=== PATIENT | female | born 1995 | race Asian ===

== ENCOUNTER → 2019-12-09 11:43 | Outpatient (BNVA) | payer OTHER, SELFPAY | PROVIDERS: Visit Provider Advanced Practice Midwife | DX: Z76.89 Persons encountering health services in other specified circumstances (principal) ==

== ENCOUNTER 2020-01-03 13:42 | Outpatient (REF) | payer OTHER, SELFPAY ==
[2020-01-03 15:26] LABS: Hematocrit 34.6 % (37-47); Hemoglobin 11.2 g/dl (12.0-16.0); Mean Corpuscular HGB Conc 32.4 g/dl (31.0-35.0); Mean Corpuscular Hemoglobin 31.6 pg (27.0-33.0); Mean Corpuscular Volume 97.7 fL (80-98); Platelet Count 271 X10*3/uL (160-400); Red Blood Count 3.54 X10*6/uL (4.20-5.50); Red Cell Distribution Width 13.3 % (11.0-16.0)
[2020-01-03 15:49] LABS: Glucose 1 Hour PP 50gm Dose 111 mg/dL (60-140)
[2020-01-04 08:23] LABS: Syphilis Screen Nonreactive (Nonreactive)
[2020-01-05 08:47] LABS: HIV AB/AG Nonreactive (Nonreactive); HIV Num 1 0.13 S/CO (0.00-0.99)
== END 2020-01-03 13:43 | disposition home or self-care (01) ==
LOC: HO.LAB 13:42
PROVIDERS: Visit Provider Advanced Practice Midwife
DX: Z34.80 Encounter for supervision of other normal pregnancy, unspecified trimester (principal)
CPT/HCPCS: 36415; 85027; 86780; 87389

== ENCOUNTER 2020-01-13 12:55 | Outpatient (REF) | payer OTHER, SELFPAY ==
--- NOTE | 2020-01-13 13:05 | US_ITS ---
EXAMINATION: OBSTETRICAL ULTRASOUND, Follow up HISTORY: 24-year-old at 29.2 weeks of gestation Size date discrepancy COMPARISON: 10/28/2019 TECHNIQUE: Real time transabdominal imaging with color and M-mode Doppler. PRESENTATION: Vertex PLACENTA LOCATION: Anterior without previa AMNIOTIC FLUID: RANJIT: 16.7 cm MEASUREMENTS: 1. Biparietal Diameter: 7.8 cm; 31.3 wks 2. Head Circumference: 28.4 cm; 31.2 wks 3. Abdominal Circumference: 26.1 cm; 30.2 wks 4. Femur Length: 5.84 cm; 30.4 wks 5. Heart Rate: 135 beats per minute WEIGHT: EFW: 1602 grams (3 lbs 9 oz) -- 83 %. BIOPHYSICAL PROFILE: Motion: 2 Tone: 2 Breathin Amniotic Fluid: 2 Total score: 8/8 Normal views of the posterior fossa, lateral ventricles, four-chamber view, stomach, bladder and kidneys. GESTATIONAL AGE: 1. Established GA: 29.2 wks 2. GA from [facility]: 31.0 wks ESTIMATED DATE OF DELIVERY: 1. Established CLEMENTE: 03/28/2020 2. CLEMENTE from [facility]: 03/16/2020 US/US OB follow up IMPRESSION: 1. A single active fetus is in vertex presentation 2. Size equals dates 3. Reassuring biophysical profile Thank you very much for this referral.
== END 2020-01-13 12:56 | disposition home or self-care (01) ==
LOC: HO.US 12:55
PROVIDERS: Visit Provider Advanced Practice Midwife
DX: O36.60X0 Maternal care for excessive fetal growth, unspecified trimester, not applicable or unspecified (principal)
CPT/HCPCS: 76816

== ENCOUNTER → 2020-01-23 13:44 | Outpatient (BNVA) | payer OTHER, SELFPAY | PROVIDERS: Visit Provider Advanced Practice Midwife | DX: Z76.89 Persons encountering health services in other specified circumstances (principal) ==

== ENCOUNTER → 2020-02-06 13:04 | Outpatient (BNVA) | payer OTHER, SELFPAY | PROVIDERS: Visit Provider Advanced Practice Midwife | DX: Z34.80 Encounter for supervision of other normal pregnancy, unspecified trimester (principal) | CPT/HCPCS: 81003 ==

== ENCOUNTER → 2020-02-20 12:49 | Outpatient (BNVA) | payer OTHER, SELFPAY | PROVIDERS: Visit Provider Advanced Practice Midwife | DX: Z34.80 Encounter for supervision of other normal pregnancy, unspecified trimester (principal) | CPT/HCPCS: 99212 ==

== ENCOUNTER → 2020-03-05 10:02 | Outpatient (BNVA) | payer OTHER, SELFPAY | PROVIDERS: Visit Provider Advanced Practice Midwife | DX: Z34.80 Encounter for supervision of other normal pregnancy, unspecified trimester (principal) | CPT/HCPCS: 36415; 99212 ==

== ENCOUNTER 2020-03-05 13:18 | Outpatient (REF) | payer OTHER, SELFPAY | END 2020-03-07 13:19 | disposition home or self-care (01) | LOC: HO.LNP 13:18 | PROVIDERS: Visit Provider Advanced Practice Midwife | DX: Z13.89 Encounter for screening for other disorder (principal) ==

== ENCOUNTER 2020-03-05 15:26 | Outpatient (REF) | payer OTHER, SELFPAY ==
[2020-03-07 18:57] LABS: C. trachomatis RNA TMA NOT DETECTED (NOT DETECTED); N. gonorrhoeae RNA TMA NOT DETECTED (NOT DETECTED)
== END 2020-03-05 15:27 | disposition home or self-care (01) ==
LOC: HO.LNP 15:26
PROVIDERS: Visit Provider Advanced Practice Midwife
DX: Z34.80 Encounter for supervision of other normal pregnancy, unspecified trimester (principal)
CPT/HCPCS: 36415; 87081; 87491; 87591

== ENCOUNTER 2020-03-12 11:01 | Outpatient (REF) | payer OTHER, SELFPAY ==
[2020-03-12 12:54] LABS: Hematocrit 37.1 % (37-47); Hemoglobin 12.1 g/dl (12.0-16.0); Mean Corpuscular HGB Conc 32.6 g/dl (31.0-35.0); Mean Corpuscular Hemoglobin 30.9 pg (27.0-33.0); Mean Corpuscular Volume 94.9 fL (80-98); Mean Platelet Volume 10.9 fL (9.4-12.3); Platelet Count 226 X10*3/uL (160-400); Red Blood Count 3.91 X10*6/uL (4.20-5.50); Red Cell Distribution Width 13.6 % (11.0-16.0); White Blood Count 10.4 X10*3/uL (4.8-10.8)
[2020-03-12 13:14] LABS: Alanine Aminotransferase 12 U/L (0-31); Aspartate Amino Transferase 15 U/L (5-31); Blood Urea Nitrogen 8 mg/dL (9-16); Uric Acid 6.2 mg/dL (2.4-5.7)
[2020-03-12 14:14] LABS: Creatinine Urine 102.87 mg/dL; Protein/Creatinine Ratio, Ur 0.23 (<0.2); Total Protein Urine Random 24 mg/dL (<12)
== END 2020-03-12 11:02 | disposition home or self-care (01) ==
LOC: HO.LAB 11:01
PROVIDERS: Visit Provider Advanced Practice Midwife
DX: Z34.83 Encounter for supervision of other normal pregnancy, third trimester (principal)
CPT/HCPCS: 36415; 81003; 84156; 84450; 84460; 84520; 84550; 85027; 99212

== ENCOUNTER → 2020-03-14 13:54 | Outpatient (BNVA) | payer OTHER, SELFPAY | PROVIDERS: Visit Provider Advanced Practice Midwife | DX: O36.8190 Decreased fetal movements, unspecified trimester, not applicable or unspecified (principal) | CPT/HCPCS: 59025; 99212 ==

== ENCOUNTER → 2020-03-19 10:47 | Outpatient (BNVA) | payer OTHER, SELFPAY | PROVIDERS: PCP Internal Medicine; Visit Provider Advanced Practice Midwife | DX: Z34.90 Encounter for supervision of normal pregnancy, unspecified, unspecified trimester (principal) | CPT/HCPCS: 81003; 99212 ==

== ENCOUNTER → 2020-03-26 11:24 | Outpatient (BNVA) | payer OTHER, SELFPAY | PROVIDERS: PCP Internal Medicine; Visit Provider Advanced Practice Midwife | DX: O36.60X0 Maternal care for excessive fetal growth, unspecified trimester, not applicable or unspecified (principal) | CPT/HCPCS: 81003; 99212 ==

== ENCOUNTER 2020-03-29 14:34 | Outpatient (REF) | payer OTHER, SELFPAY ==
--- NOTE | ~2020-03-29 | US_ITS ---
EXAMINATION: US OBSTETRICAL FOLLOWUP WITH BIOPHYSICAL PROFILE CLINICAL INFORMATION: Small for dates. Post dates. COMPARISON: Ultrasound OB 01/13/2020 TECHNIQUE: Real time transabdominal imaging with color and M-mode Doppler. POSITION: Cephalic. PLACENTA: Anterior grade 3. AMNIOTIC FLUID INDEX: 10.5 cm. MEASUREMENTS: The initial dating ultrasound dated provided an estimated date of delivery of 03/31/2020. This would project today to a of 39 weeks and 5 days. By LMP clinical gestational age is 40 weeks 1 day. biometric measurements are as follows: Biparietal Diameter: 9.44 cm (38 weeks and 4 days) Head Circumference: 34.93 cm (40 weeks and 5 days) Abdominal Circumference: 35.96 cm (40 weeks and 0 days) Femur Length: 7.69 cm (39 weeks and 3 days) The standard deviation for the above measurements is +/- 3 weeks. ESTIMATED WEIGHT: The EFW is 3851 grams / (8 lbs 8 oz. Patient is about 40 weeks hence no percentile is calculated. BIOPHYSICAL PROFILE: Biophysical profile is performed over 30 minutes with assessment of breathing, gross body movement, tone, and qualitative amniotic fluid volume. Each matrix is scored 0 or 2, depending if the metric is present. Maximum total score possible is 8. Motion: 2 Tone: 2 Breathin Amniotic Fluid: 2 Total score: 8 HR: 124 bpm US/US OB follow up IMPRESSION: 1. Single intrauterine gestation in cephalic position with anterior placenta. 2. EFW: 8 pounds and 8 ounces. 3. RANJIT: 10.5 cm. 4. BPP score: 8/8 (scale 0-8).
== END 2020-03-29 14:35 | disposition home or self-care (01) ==
LOC: HO.US 14:34
PROVIDERS: Visit Provider Advanced Practice Midwife
DX: O36.63X0 Maternal care for excessive fetal growth, third trimester, not applicable or unspecified (principal); Z3A.39 39 weeks gestation of pregnancy
CPT/HCPCS: 76816

== ENCOUNTER → 2020-04-02 11:08 | Outpatient (BNVA) | payer OTHER, SELFPAY | PROVIDERS: Visit Provider Advanced Practice Midwife | DX: Z34.90 Encounter for supervision of normal pregnancy, unspecified, unspecified trimester (principal) | CPT/HCPCS: 99212 ==

== ENCOUNTER 2020-04-18 10:26 | Outpatient (REF) | payer OTHER, SELFPAY ==
[2020-04-19 16:12] LABS: C. trachomatis RNA TMA NOT DETECTED (NOT DETECTED); N. gonorrhoeae RNA TMA NOT DETECTED (NOT DETECTED)
== END 2020-04-18 10:27 | disposition home or self-care (01) ==
LOC: HO.LAB 10:26
PROVIDERS: Visit Provider Obstetrics & Gynecology
DX: Z39.2 Encounter for routine postpartum follow-up (principal); B37.3 Candidiasis of vulva and vagina; Z20.2 Contact with and (suspected) exposure to infections with a predominantly sexual mode of transmission; Z30.09 Encounter for other general counseling and advice on contraception; Z79.82 Long term (current) use of aspirin; Z79.899 Other long term (current) drug therapy
CPT/HCPCS: 36415; 87491; 87591; 99212

== ENCOUNTER 2020-05-14 13:08 | Outpatient (REF) | payer OTHER, SELFPAY ==
[2020-05-14 14:06] LABS: Hematocrit 38.1 % (37-47); Hemoglobin 12.5 g/dl (12.0-16.0); Mean Corpuscular HGB Conc 32.8 g/dl (31.0-35.0); Mean Corpuscular Volume 94.5 fL (80-98); Platelet Count 336 X10*3/uL (160-400); Red Blood Count 4.03 X10*6/uL (4.20-5.50); Red Cell Distribution Width 13.6 % (11.0-16.0)
== END 2020-05-14 13:09 | disposition home or self-care (01) ==
LOC: HO.LAB 13:08
PROVIDERS: Visit Provider Obstetrics & Gynecology
DX: Z98.890 Other specified postprocedural states (principal)
CPT/HCPCS: 36415; 85027

== ENCOUNTER → 2020-05-16 10:36 | Outpatient (BNVA) | payer OTHER, SELFPAY | PROVIDERS: Visit Provider Obstetrics & Gynecology | DX: Z39.2 Encounter for routine postpartum follow-up (principal) | CPT/HCPCS: 99212 ==

== ENCOUNTER 2020-06-18 13:15 | Outpatient (REF) | payer OTHER, SELFPAY ==
[2020-06-19 01:23] LABS: CT PCR NOT DETECTED (Not Detect.); NG PCR NOT DETECTED (Not Detect.)
== END 2020-06-18 13:16 | disposition home or self-care (01) ==
LOC: HO.LAB 13:15
PROVIDERS: Visit Provider Advanced Practice Midwife
DX: Z39.1 Encounter for care and examination of lactating mother (principal); Z20.2 Contact with and (suspected) exposure to infections with a predominantly sexual mode of transmission
CPT/HCPCS: 87491; 87591

== ENCOUNTER 2020-09-24 13:05 | Outpatient (REF) | payer OTHER, SELFPAY ==
[2020-09-25 00:51] LABS: CT PCR NOT DETECTED (Not Detect.); NG PCR NOT DETECTED (Not Detect.)
== END 2020-09-24 13:06 | disposition home or self-care (01) ==
LOC: HO.LAB 13:05
PROVIDERS: Visit Provider Advanced Practice Midwife
DX: Z30.430 Encounter for insertion of intrauterine contraceptive device (principal); Z20.2 Contact with and (suspected) exposure to infections with a predominantly sexual mode of transmission
CPT/HCPCS: 58300; 81025; 87491; 87591

== ENCOUNTER → 2021-01-09 10:16 | Outpatient (BNVA) | payer OTHER, SELFPAY | PROVIDERS: Visit Provider Advanced Practice Midwife | DX: Z30.431 Encounter for routine checking of intrauterine contraceptive device (principal) | CPT/HCPCS: 99212 ==

== ENCOUNTER 2021-06-20 13:36 | Outpatient (REF) | payer OTHER, SELFPAY ==
[2021-06-21 13:09] LABS: BV Int Neg Control Negative (Negative); BV Int Pos Control Positive (Positive)
[2021-06-21 13:51] LABS: CT PCR NOT DETECTED (Not Detect.); NG PCR NOT DETECTED (Not Detect.)
== END 2021-06-20 13:37 | disposition home or self-care (01) ==
LOC: HO.LAB 13:36
PROVIDERS: Visit Provider Advanced Practice Midwife
DX: Z01.411 Encounter for gynecological examination (general) (routine) with abnormal findings (principal); Z20.2 Contact with and (suspected) exposure to infections with a predominantly sexual mode of transmission; N89.8 Other specified noninflammatory disorders of vagina; L70.9 Acne, unspecified
CPT/HCPCS: 87480; 87491; 87510; 87591; 87660

== ENCOUNTER 2022-10-08 14:12 | Outpatient (REF) | payer SELFPAY ==
[2022-10-09 09:13] LABS: CT PCR NOT DETECTED (Not Detect.); NG PCR NOT DETECTED (Not Detect.)
[2022-10-09 10:43] LABS: BV Int Neg Control Negative (Negative); BV Int Pos Control Positive (Positive)
== END 2022-10-08 14:13 | disposition home or self-care (01) ==
LOC: HO.LAB 14:12
PROVIDERS: Visit Provider Advanced Practice Midwife
DX: N89.8 Other specified noninflammatory disorders of vagina (principal); Z20.2 Contact with and (suspected) exposure to infections with a predominantly sexual mode of transmission
CPT/HCPCS: 0353U; 87480; 87510; 87660

== ENCOUNTER 2022-10-08 14:12 | Outpatient (AMB) | payer SELFPAY ==
[2022-10-08 14:18] VITALS: BP 124/70; BMI 35.8
--- NOTE | 2022-10-08 14:18 | MHC.OFFVIS ---
Intake Vital Signs 10/08/22 14:18 Height 5 ft 2 in Weight 196 lb BMI 35.8 BP 124/70 Intake Visit Reasons: Annual/keep 30 mins Intake Note: The patient agreed to use of a medical assembly during this encounter. Scribed for ALEJANDRA Saucedo by Juanita Sanchez, medical assembly, on 10/08/2022 at 2:35 pm EST. Oil And Gas Superintendent Required: Yes Oil And Gas Superintendent Language: Kyrgyz Oil And Gas Superintendent Name: Sylvester Gomez Information Interpreted: non-clinical & clinical Housekeeping Room Inspector: Housekeeping Room Inspector Present (Julienne) Allergies No Known Allergies Allergy (Verified 10/08/22 14:20) Is last menstrual period known: Yes Last menstrual period: 09/19/22 HPI HPI Comments History of Present Illness Details She is a premenopausal woman presenting for annual exam. She admits to eating healthy and tries to stay active with exercise. Currently sexually active. Reports pelvic pain partner stated IUD strings were bothersome during intimacy. Uses ParaGard for BC. Menses are normal volume and regular pattern. Denies vaginal itching and irritation. Admits vaginal discharge. STD screening offered; she accepts. Denies family hx of breast, colon and ovarian cancer. Last pap smear 09/15/19. [facility] Medical History (Updated 10/08/22 @ 14:48 by Juanita Sanchez) IUD surveillance Pelvic pain Vaginal Discharge Surgical History History of section Family History Mother HTN (hypertension) Sister HTN (hypertension) Social History (Updated 10/08/22 @ 14:25 by VILMA Peters) Alcohol intake: never Patient Tobacco Use Status: Never used Tobacco Sexual orientation: Straight/Heterosexual Gender identity: Female Female Reproductive History Menstrual Age of Menarche: 8 Date of last menstrual period: 09/19/22 control method: copper IUCD (Paragard 10/13, IUD strings visible 10/08/22) Total pregnancies: 1 Full term: 1 Number of Living Children: 1 Date of last pap smear: 09/15/19 (neg) Physical Exam Vital Signs: Last Vital Signs BP 124/70 08/16/23 14:18 BMI result Body Mass Index 35.8 Const General: cooperative, healthy appearing, no acute distress, well developed and alert Orientation/consciousness: patient oriented x3 HEENT Head: Yes normal to inspection Eyes General: appearance normal, both eyes and all related structures Neck Neck: Yes normal visual inspection Thyroid: Thyroid normal Chest Chest palpation & inspection: normal inspection of the chest Breast/axilla inspection: normal inspection of the breasts (no puckering, dimpling, peau de orange, retraction, discharge, masses) Breast/axilla palpation: normal palpation of the breasts Resp Effort & Inspection: normal respiratory effort GI Inspection: Yes normal to inspection Palpation (GI): Soft to palpation (to palpation) Rectal Exam - Female: deferred General: Yes bladder normal to inspection External Female Exam: normal external appearance and normal appearance of the urethra Speculum Exam - Vagina: normal appearance of the vagina, normal palpation and abnormal vaginal discharge Speculum Exam - Cervix: normal appearance of the cervix, normal palpation and Other cervical findings present (IUD strings visible; bled slightly with pap) Bimanual exam- vagina & uterus: normal palpation and normal palpation Bimanual Exam- Adnexa, other: normal adnexae and no masses Skin General skin exam: no rashes or lesions noted Neuro General: patient oriented x3 Cognition (Neuro): normal cognition Extrem General: Yes normal to inspection Psych Attitude: cooperative Thought process: Normal thought process present Assessment & Plan Assessment & Plan (1) Encounter for well woman exam: Code(s): Z01.419 - Encounter for gynecological examination (general) (routine) without abnormal findings Plan: Discussed: Current recommendations for pap smears per ASCCP guidelines Breast awareness and periodic self breast exams. Maintaining a healthy lifestyle including a well balanced diet and routine exercise. All of her questions and concerns were addressed to the best of my ability. RTO in one year for AG. (2) Vaginal Discharge: Code(s): N89.8 - Other specified noninflammatory disorders of vagina Plan: BV testing and GC/CT panel done today. Await results and treat accordingly. (3) Pelvic pain: Code(s): R10.2 - Pelvic and perineal pain Plan: Pelvic US for IUD positioning ; follow up in person for results. Reviewed repositioning of the string if needed for comfort. (4) IUD surveillance: Code(s): Z30.431 - Encounter for routine checking of intrauterine contraceptive device Orders: Orders US pelvic and transvaginal Today R10.2 - Pelvic and perineal pain, Z30.431 - Encounter for routine checking of intrauterine contraceptive device Bacterial Vaginosis Panel Today N89.8 - Other specified noninflammatory disorders of vagina CT NG by PCR Today N89.8 - Other specified noninflammatory disorders of vagina, Z20.2 - Contact with and (suspected) exposure to infections with a predominantly sexual mode of transmission Pap Smear Today Z01.419 - Encounter for gynecological examination (general) (routine) without abnormal findings Coding Level of Care Code Est Pt Prev Care 18-39y([id number]) Diagnoses Encounter for well woman exam Z01.419 Vaginal Discharge N89.8 Pelvic pain R10.2 IUD surveillance Z30.431
== END 2022-10-08 14:55 | disposition home or self-care (01) ==
LOC: HO.HWS 14:12
PROVIDERS: Visit Provider Advanced Practice Midwife
DX: Z01.419 Encounter for gynecological examination (general) (routine) without abnormal findings (principal); N89.8 Other specified noninflammatory disorders of vagina; R10.2 Pelvic and perineal pain; Z30.431 Encounter for routine checking of intrauterine contraceptive device
CPT/HCPCS: 99395

== ENCOUNTER 2022-10-08 14:46 | Outpatient (REF) | payer SELFPAY | END 2022-10-08 14:47 | disposition home or self-care (01) | LOC: HO.LNP 14:46 | PROVIDERS: Visit Provider Advanced Practice Midwife | DX: N89.8 Other specified noninflammatory disorders of vagina (principal); Z20.2 Contact with and (suspected) exposure to infections with a predominantly sexual mode of transmission | CPT/HCPCS: 88142 ==

== ENCOUNTER 2022-11-03 11:01 | Outpatient (REF) | payer OTHER, SELFPAY ==
--- NOTE | ~2022-11-03 | US_ITS ---
EXAMINATION: US PELVIS COMPLETE CLINICAL INFORMATION: Pelvic pain COMPARISON: OB ultrasound 03/29/2020 TECHNIQUE: Transabdominal and transvaginal imaging was performed. FINDINGS: The uterus is of normal size and echogenicity measuring 8.2 x 4.0 x 5.1 cm. A regular homogeneous endometrium is identified measuring 0.9 cm. Intrauterine device in place. Nabothian cysts in the cervix. Symmetric cystic structures are noted in the bilateral cornua of the uterus, possibly secondary to degree of fallopian tube stenosis/obstruction. Both ovaries are of normal echogenicity with vascular flow present.. The right measures 2.8 x 1.7 x 2.4 cm for a volume of 6.0 mL. The left measures 4.6 x 2.9 x 2.8 cm for a volume of 20 mL. There is trace simple physiologic volume pelvic free fluid. US/US pelvic and transvaginal IMPRESSION: 1. Symmetric cystic structures are noted in the bilateral cornua of the uterus, possibly secondary to degree of fallopian Fallopian tube stenosis/obstruction. 2. Intrauterine device in place.
== END 2022-11-03 11:02 | disposition home or self-care (01) ==
LOC: HO.US 11:01
PROVIDERS: Visit Provider Advanced Practice Midwife
DX: R10.2 Pelvic and perineal pain (principal); Z30.431 Encounter for routine checking of intrauterine contraceptive device
CPT/HCPCS: 76830; 76856

== ENCOUNTER 2024-05-20 15:31 | Emergency (ER) | payer MEDICAID, OTHER, SELFPAY ==
--- NOTE | ~2024-05-20 | CT_ITS ---
CLINICAL HISTORY: lower abdominal pain, back pain. kidney stones? CT abdomen and pelvis without IV contrast. COMPARISON: None FINDINGS: Partially visualized lung bases are unremarkable. Normal gallbladder. Noncontrast appearance of the liver, spleen, pancreas and adrenal glands are unremarkable. No right-sided hydronephrosis. No right renal or ureteral calculus. Mild left hydronephrosis and hydroureter. Nonobstructing 1 mm left renal calculus. At the left UVJ there is a 6 mm ureteral calculus. Normal appendix. Mild colonic stool burden. No bowel obstruction. No mesenteric or retroperitoneal lymphadenopathy. Normal abdominal aorta. Normal appearance of the urinary bladder. IUD appears appropriately positioned. No adnexal mass. No acute fracture or suspicious bone lesion. IMPRESSION: 1. Left UVJ 6 mm calculus causes mild left hydronephrosis and hydroureter. 2. Additional nonobstructing 1 mm left renal calculus. This document has been electronically signed by: Daron Bradford MD on 05/20/2024 19:28:46
[2024-05-20 15:35] VITALS: BP 124/69; PULSE 75; RESP 18; TEMP 37; O2SAT 97; BMI 34.2
--- NOTE | 2024-05-20 15:39 | ED_ITS ---
HPI - General Adult General Chief complaint: General Medical Stated complaint: lower back pain Time Seen by Provider: 05/20/24 17:30 Source: patient Mode of arrival: ambulatory Limitations: no limitations History of Present Illness ED Provider: Stephen Cortez HPI narrative: 28-year-old female history of for episode of kidney stones presents to ED for lower pelvic pain radiating to the back. Patient denies any nausea or vomiting. Patient states pain started today. patient denies any vaginal discharge or vaginal bleeding. Patient denies any history of fibroids or ovarian cyst. Related Data Home Medications ?Medication ?Instructions ?Recorded ?Confirmed copper 380 square mm intrauterine intrauterine 06/20/21 device (ParaGard T 380A) Previous Rx's ?Medication ?Instructions ?Recorded ketorolac 10 mg tablet 10 mg PO Q6H PRN pain 5 days #20 05/20/24 tabs prednisone 20 mg tablet 20 mg PO DAILY 5 days #5 tabs 05/20/24 tamsulosin 0.4 mg capsule (Flomax) 0.4 mg PO DAILY #7 caps 05/21/24 Allergies Allergy/AdvReac Type Severity Reaction Status Date / Time No Known Allergies Allergy Verified 05/20/24 15:41 Review of Systems 2 Review of Systems: Lower abdominal pain referring to the back Yes all other systems are reviewed and are negative FOR[facility]LY [facility], [facility] Past Medical History Medical History (Updated 05/21/24 @ 00:00 by Jaguar Olson) IUD surveillance Pelvic pain Vaginal Discharge Surgical History History of section Family History Family History Mother HTN (hypertension) Sister HTN (hypertension) Social History Social History (Updated 10/08/22 @ 14:25 by VILMA Peters) Alcohol intake: never Patient Tobacco Use Status: Never used Tobacco Sexual orientation: Straight/Heterosexual Gender identity: Female Physical Exam ED Vital Signs: Vital Signs - 24 hr 05/20/24 15:35 05/20/24 20:04 Temperature 98.6 F 98.5 F Pulse Rate 75 72 Respiratory Rate 18 16 Blood Pressure 124/69 115/63 Pulse Oximetry 97 97 Oxygen Delivery Method Room Air Room Air BMI result Body Mass Index 34.2 Const General: cooperative, healthy appearing, comfortable, no acute distress, well developed, alert, awake and Physically active Orientation/consciousness: patient oriented x3 [facility] Head: Yes normal to inspection, Yes No palpable skull fracture present, Yes normocephalic and Yes atraumatic Eyes General: appearance normal, both eyes and all related structures Neck Neck: Yes normal visual inspection, Yes full ROM, Yes no lymphadenopathy, Yes no meningeal signs, Yes trachea midline, Yes supple, No anterior neck swelling and No tender Chest Chest palpation & inspection: normal inspection of the chest and normal palpation of entire chest wall Resp Effort & Inspection: normal respiratory effort and able to speak in complete sentences Auscultation: clear to auscultation bilaterally Cardio Jugular venous distension: no JVD Heart sounds: S1 normal heart sound present and S2 normal heart sound present GI Inspection: Yes normal to inspection Palpation (GI): Soft to palpation, not firm, Tenderness to palpation present (GI) in the LLQ and in the RLQ, no guarding and not rigid General: Yes no CVA tenderness Back/Spine/Pelvis Back: no CVA tenderness and No back tenderness Skin General skin exam: no rashes or lesions noted, elasticity normal and turgor normal Neuro General: patient oriented x3, gait normal, tone normal, moves all extremities, Normal light touch and pain sensation, no meningeal signs, no focal motor deficits, CN's II-XI intact bilaterally and normal sensation to monofilament Extrem General: Yes normal to inspection, Yes full ROM and Yes capillary refill normal Psych Appearance: grossly normal, well kempt and not disheveled Course Course Course Narrative: RME, this is a rapid medical exam performed by El Zuniga please refer to primary provider for complete H&P- 28 old female presents for evaluation of lower abdominal/pelvic pain that radiates into her back. She denies any chance she was . Plan for labs, urinalysis and a testing. We will defer any advanced imaging to primary ER provider Medications Administered Discontinued Medications Generic Name Dose Route Start Last Admin Trade Name Freq PRN Reason Stop Dose Admin Sodium Chloride 1,000 mls @ 999 mls/hr 05/20/24 17:47 05/20/24 19:07 Ns IV 05/20/24 18:47 Infused .Q1H1M STA Infusion Ketorolac Tromethamine 30 mg 05/20/24 17:47 05/20/24 18:07 Ketorolac Tromethamine 30 Mg/Ml Vial IVPUSH 05/20/24 17:48 30 mg ONCE ONE Administration Medical Decision Making Medical Decision Making [facility] Narrative: 28-year-old female history of for episodes of kidney stones presents to ED for lower abdominal pain referred from the back suddenly at occurred today. Patient denies any trauma, vaginal discharge vaginal bleeding, diarrhea, rectal pain, history of any fibroids or ovarian cyst. UA shows blood was sent for dry CT scan given Toradol fluids. 9:12pm: Patient CT scan shows 6 mm UVJ stone with mild hydronephrosis. Patient is not any distress. Pain controlled with Toradol. Pain is 2/10. Spoke with Dr. Meadows or Urology who states patient can be discharged recommend discharged with steroids and close follow-up next week. Patient explained worrisome signs and informed to return to the ED imm Differential Diagnosis Differential Diagnoses: The differential diagnosis associated with the presentation includes ( Kidney stone UTI pyelonephritis) Admission/Observation Consideration of admission/observation: Escalation of care including admission/observation considered Consult Healthcare Provider Management of the patient was discussed with: Fretted Instrument Inspector ( Dr. Meadows) Lab Data [facility] Lab Attestation statement: I reviewed the patient's lab results. 05/20/24 15:51 05/20/24 15:51 Labs: Lab Results 05/20/24 Range/Units 15:51 WBC 11.0 H (4.8-10.8) X10*3/uL RBC 4.00 L (4.20-5.50) X10*6/uL Hgb 12.4 (12.0-16.0) g/dl Hct 36.1 L (37.0-47.0) % MCV 90.3 (80.0-98.0) fL MCH 31.0 (27.0-33.0) pg MCHC 34.3 (31.0-35.0) g/dl RDW 13.3 (11.0-16.0) % Plt Count 288 (160-400) X10*3/uL MPV 9.1 L (9.4-12.3) fL Immature Gran % (Auto) 0.4 (0.0-0.4) % Neut % (Auto) 68.0 (45-73) % Lymph % (Auto) 25.5 (20-40) % [place] % (Auto) 5.0 (2-11) % Eos % (Auto) 0.5 (0-4) % Baso % (Auto) 0.6 (0-2) % Lymph # (Auto) 2.8 (1.2-4.9) X10*3/uL [place] # (Auto) 0.6 (0.1-1.2) X10*3/uL Eos # (Auto) 0.1 (0.0-0.4) X10*3/uL Baso # (Auto) 0.1 (0.0-0.2) X10*3/uL Abs Immat Gran (auto) 0.04 H (0.00-0.03) X10*3/uL Absolute Neuts (auto) 7.5 (2.0-8.3) x10*3/uL Absolute Nucleated RBC 0.000 (0.0-0.012) X10*3/uL Nucleated RBC % (auto) 0.0 (0.0-0.2) /100WBC Sodium 134 L (135-145) mmol/L Potassium 4.2 (3.3-5.1) mmol/L Chloride 103 (96-108) mmol/L Carbon Dioxide 21 L (22-29) mmol/L Anion Gap 14 (12-20) BUN 16 (9-16) mg/dL Creatinine 0.77 (0.5-1.4) mg/dL Estim Creat Clear Calc 120.5 Estimated GFR > 60 Random Glucose 116 H (60-115) mg/dL Calcium 9.6 (8.4-10.2) mg/dL Total Bilirubin 0.3 (0.0-1.0) mg/dL AST 21 (5-31) U/L ALT 22 (0-31) U/L Alkaline Phosphatase 65 (39-117) U/L Total Protein 7.3 (6.5-8.0) g/dL Albumin 4.2 (3.5-5.0) g/dL Lipase 25 (8-78) U/L Beta HCG, Quant < 2 mIU/mL Urine Color Yellow Urine Appearance Hazy Urine pH 6.0 (5.0-9.0) Ur Specific [place] >= 1.030 H (1.005-1.025) Urine Protein Trace (Neg-Trace) mg/dL Urine Glucose (UA) Negative (Negative) mg/dL Urine Ketones Negative (Negative) mg/dL Urine Blood Large (3+) H (Negative) Urine Nitrite Negative (Negative) Ur Leukocyte Esterase Negative (Negative) Urine RBC 11-20 H (0-2) /HPF Urine WBC 0-5 (0-5) /HPF Ur Squamous Epith Cells 3-5 (0-2) /HPF Urine Bacteria Trace (None Seen) Hyaline Casts 0-2 (0-2) /LPF Independent Interpretation I performed an independent interpretation of an: CT Scan Radiology Impression Discussion of test interpretation with radiology: I have reviewed the radiologist's reading. Independent Historian Clinical information obtained from an independent historian. History obtained from or confirmed by: Other ( patient) Discharge Plan Discharge Clinical Impression: Calculus, ureter Patient Disposition: Home, Self-Care Instructions: Ureteral Stones (ED) Additional Instructions: return to the ED immediately for any severe pain, blood in urine, fever, chills, nausea, vomiting, or any other concerning symptoms. Recommend follow-up with urologist. FINDINGS: Partially visualized lung bases are unremarkable. Normal gallbladder. Noncontrast appearance of the liver, spleen, pancreas and adrenal glands are unremarkable. No right-sided hydronephrosis. No right renal or ureteral calculus. Mild left hydronephrosis and hydroureter. Nonobstructing 1 mm left renal calculus. At the left UVJ there is a 6 mm ureteral calculus. Normal appendix. Mild colonic stool burden. No bowel obstruction. No mesenteric or retroperitoneal lymphadenopathy. Normal abdominal aorta. Normal appearance of the urinary bladder. IUD appears appropriately positioned. No adnexal mass. No acute fracture or suspicious bone lesion. IMPRESSION: 1. Left UVJ 6 mm calculus causes mild left hydronephrosis and hydroureter. 2. Additional nonobstructing 1 mm left renal calculus. This document has been electronically signed by: Daron Bradford MD on 05/20/2024 19:28:46 Prescriptions: New prednisone 20 mg tablet 20 mg PO DAILY 5 Days Qty: 5 0RF ketorolac 10 mg tablet 10 mg PO Q6H PRN (Reason: pain) 5 Days Qty: 20 0RF Rx Instructions: patient received 30 mg IV in the ED tamsulosin [Flomax] 0.4 mg capsule 0.4 mg PO DAILY Qty: 7 0RF No Action ParaGard T 380A 380 square mm intrauterine device intrauterine Referrals: [facility] [Provider Group] ( 6 mm UVJ with hydronephrosis) Stand Alone Forms: Work/School Release Interventions: ED Discharge Assessment Last Done: 05/20/24 21:42 Discharge Date/Time: 05/20/24 21:42 Print Language: Filipino
[2024-05-20 15:56] LABS: MANUAL DIFF FLAG NO
[2024-05-20 15:58] LABS: Appearance Urine Hazy; Basophils Absolute Auto 0.1 X10*3/uL (0.0-0.2); Basophils Percent Auto 0.6 % (0-2); Color Urine Yellow; Eosinophils Absolute Auto 0.1 X10*3/uL (0.0-0.4); Eosinophils Percent Auto 0.5 % (0-4); Glucose Urine UA Negative (Negative); Hematocrit 36.1 % (37.0-47.0); Hemoglobin 12.4 g/dl (12.0-16.0); Imm Gran Abs Auto 0.04 X10*3/uL (0.00-0.03); Imm Gran Pct Auto 0.4 % (0.0-0.4); Leukocyte Esterase Urine Negative (Negative); Lymphocytes Absolute Auto 2.8 X10*3/uL (1.2-4.9); Lymphocytes Percent Auto 25.5 % (20-40); Mean Corpuscular HGB Conc 34.3 g/dl (31.0-35.0); Mean Corpuscular Volume 90.3 fL (80.0-98.0); Mean Platelet Volume 9.1 fL (9.4-12.3); Monocytes Absolute Auto 0.6 X10*3/uL (0.1-1.2); Neutrophils Absolute Auto 7.5 x10*3/uL (2.0-8.3); Nitrite Urine Negative (Negative); Platelet Count 288 X10*3/uL (160-400); Red Cell Distribution Width 13.3 % (11.0-16.0); Specific Gravity - Urine >= 1.030 (1.005-1.025); UMIC TRIGGER UACC YES; Urine Blood Large (3+) (Negative); Urine Ketones Negative (Negative); Urine Protein Trace mg/dL (Neg-Trace)
[2024-05-20 16:08] LABS: Bacteria Urine Trace (None Seen); Hyaline Casts Urine 0-2 /LPF (0-2); WBC Urine 0-5 /HPF (0-5)
[2024-05-20 16:21] LABS: Alanine Aminotransferase 22 U/L (0-31); Albumin Level 4.2 g/dL (3.5-5.0); Anion Gap 14 (12-20); Aspartate Amino Transferase 21 U/L (5-31); Bilirubin Total 0.3 mg/dL (0.0-1.0); Blood Urea Nitrogen 16 mg/dL (9-16); Calcium 9.6 mg/dL (8.4-10.2); Carbon Dioxide 21 mmol/L (22-29); Chloride 103 mmol/L (96-108); Creatinine Clr Calc Pharmacy 120.5; Estimated Glomerular Filt Rate > 60; Glucose Random 116 mg/dL (60-115); HCG Quantitative < 2 mIU/mL; Lipase 25 U/L (8-78); Potassium 4.2 mmol/L (3.3-5.1); Sodium 134 mmol/L (135-145); Total Protein 7.3 g/dL (6.5-8.0)
[2024-05-20 16:59] LABS: Alkaline Phosphatase 65 U/L (39-117)
[2024-05-20] MEDS: 0.9 % Sodium Chloride 1,000 ML 999 ML IV (18:06)
[2024-05-20] MEDS: Ketorolac Tromethamine 30 MG/ML VIAL IVPUSH (18:07)
[2024-05-20 20:04] VITALS: BP 115/63; PULSE 72; RESP 16; TEMP 36.9; O2SAT 97
[2024-05-20 21:42] VITALS: BP 115/63; PULSE 72; RESP 16; TEMP 36.9; O2SAT 97
== END 2024-05-20 21:42 | disposition home or self-care (01) ==
PROVIDERS: Physician Assistant; Emergency Provider Emergency Medicine
DX: N13.2 Hydronephrosis with renal and ureteral calculous obstruction (principal); R10.2 Pelvic and perineal pain
CPT/HCPCS: 36415; 74176; 80053; 81001; 83690; 84702; 85025; 96361; 96374; 99284; 99285; J1885

== ENCOUNTER → 2024-05-20 17:47 | Outpatient (BNV) | payer MEDICAID, SELFPAY | PROVIDERS: Emergency Provider Emergency Medicine; Visit Provider Radiology Diagnostic Radiology | DX: R10.30 Lower abdominal pain, unspecified (principal); M54.9 Dorsalgia, unspecified; N13.0 Hydronephrosis with ureteropelvic junction obstruction | CPT/HCPCS: 74176 ==